=== PATIENT | male | born 1950 | race Two or more races ===

== ENCOUNTER 2018-03-06 14:10 | Outpatient (CLI) | payer OTHER ==
[~2018-03-06 14:10] MED LIST: ANUSOL-HC25 MG RC; ANUSOL-HC30 G2 RC; METFORMIN; NAPROXEN; NEURONTIN800 MG PO; OMEGA-31000 MG PO; PLAVIX75 MG PO
== END 2018-03-06 14:17 | disposition home or self-care (01) ==
LOC: RAD 501 14:10
DX: M25.511 Pain in right shoulder (principal); M25.552 Pain in left hip

== ENCOUNTER 2018-03-08 15:26 | Outpatient (CLI) | payer OTHER | END 2018-03-08 15:36 | disposition home or self-care (01) | LOC: LAB 15:26 | DX: N28.89 Other specified disorders of kidney and ureter (principal); Z51.81 Encounter for therapeutic drug level monitoring ==

== ENCOUNTER → 2018-03-18 11:14 | Outpatient (CLI) | payer OTHER | END | disposition home or self-care (01) | LOC: RAD 11:14 | DX: M17.11 Unilateral primary osteoarthritis, right knee (principal) ==

== ENCOUNTER 2018-03-22 11:52 | Outpatient (CLI) | payer OTHER | END 2018-03-22 15:00 | disposition home or self-care (01) | LOC: SONOGRAMA 11:52 | DX: M75.41 Impingement syndrome of right shoulder (principal) ==

== ENCOUNTER 2018-03-26 13:59 | Outpatient (CLI) | payer OTHER | END 2018-03-26 14:17 | disposition home or self-care (01) | LOC: NUCLEAR 13:59 | DX: M81.0 Age-related osteoporosis without current pathological fracture (principal) ==

== ENCOUNTER 2018-04-30 14:51 | Emergency (ER) | payer OTHER ==
[~2018-04-30] VITALS: Ht 175.3 cm; Wt 79.8 kg
[2018-04-30] MEDS ORDERED: LANTUS SOL100 UNIT/1 SUBCUTANEO (14:58)
[2018-04-30] MEDS ORDERED: FORTAMET1000 MG PO (14:58)
[2018-04-30] MEDS ORDERED: ZOCOR40 MG PO (14:59)
[2018-04-30] MEDS ORDERED: ASA81 MG PO (14:59)
== END 2018-04-30 17:45 | disposition home or self-care (01) ==
LOC: ER 14:51
DX: K29.60 Other gastritis without bleeding (principal)

== ENCOUNTER → 2018-06-17 08:49 | Outpatient (CLI) | payer OTHER ==
[~2018-06-17 08:49] MED LIST changes: +ASA81 MG PO; +FORTAMET1000 MG PO; +LANTUS SOL100 UNIT/1 SUBCUTANEO; +PENTOXIFYLLINE400 MG PO; +ZOCOR40 MG PO
== END | disposition home or self-care (01) ==
LOC: LAB 08:49
DX: D64.89 Other specified anemias (principal); E03.8 Other specified hypothyroidism; N39.0 Urinary tract infection, site not specified; R82.8 Abnormal findings on cytological and histological examination of urine; E11.9 Type 2 diabetes mellitus without complications; K92.1 Melena; E55.9 Vitamin D deficiency, unspecified; E78.49 Other hyperlipidemia; D68.8 Other specified coagulation defects; B95.62 Methicillin resistant Staphylococcus aureus infection as the cause of diseases classified elsewhere; E88.89 Other specified metabolic disorders; E83.42 Hypomagnesemia; Z76.89 Persons encountering health services in other specified circumstances

== ENCOUNTER 2018-06-21 10:09 | Outpatient (CLI) | payer OTHER ==
[~2018-06-21 10:09] MED LIST changes: -PENTOXIFYLLINE400 MG PO
[2018-06-21] MEDS ORDERED: PENTOXIFYLLINE400 MG PO (11:02)
== END 2018-06-21 10:15 | disposition home or self-care (01) ==
LOC: EKG 10:09
DX: I49.8 Other specified cardiac arrhythmias (principal); Z01.810 Encounter for preprocedural cardiovascular examination

== ENCOUNTER 2018-07-05 05:45 | Day surgery (SDC) | payer OTHER ==
[~2018-07-05 05:45] MED LIST changes: +ASPIR 8181 MG PO; +GABAPENTIN800 MG PO; +LANTUS; +PENTOXIFYLLINE400 MG PO; +TRAMADOL HCL7.5 GM PO
== END 2018-07-05 19:10 | disposition home or self-care (01) ==
LOC: CIR.AMB 05:45
DX: M75.121 Complete rotator cuff tear or rupture of right shoulder, not specified as traumatic (principal)

== ENCOUNTER → 2018-08-28 | Outpatient (CLI) | payer OTHER | END | disposition home or self-care (01) | LOC: RAD 501 10:30 | DX: M25.552 Pain in left hip (principal) ==

== ENCOUNTER 2021-02-11 15:15 | Emergency (ER) | payer OTHER ==
[~2021-02-11] VITALS: Ht 175.3 cm; Wt 72.6 kg
[2021-02-11] MEDS ORDERED: KETO10TA2 PO (21:09)
== END 2021-02-11 21:13 | disposition home or self-care (01) ==
LOC: ER 15:15
DX: S70.02XA Contusion of left hip, initial encounter (principal); W07.XXXA Fall from chair, initial encounter; Y93.89 Activity, other specified; Y92.018 Other place in single-family (private) house as the place of occurrence of the external cause; Y99.8 Other external cause status; Z96.642 Presence of left artificial hip joint

== ENCOUNTER 2021-11-03 14:22 | Outpatient (CLI) | payer OTHER ==
[~2021-11-03 14:22] MED LIST changes: +KETO10TA2 PO
== END 2021-11-03 14:23 | disposition home or self-care (01) ==
LOC: RAD 14:22
PROVIDERS: ATTEND Orthopaedic Surgery
DX: M25.561 Pain in right knee (principal); M25.552 Pain in left hip; M25.551 Pain in right hip

== ENCOUNTER 2021-12-16 12:54 | Outpatient (CLI) | payer OTHER ==
[~2021-12-16 12:54] MED LIST changes: +PREGABALIN50 MG PO
== END 2021-12-16 13:03 | disposition home or self-care (01) ==
LOC: MRI 12:54
PROVIDERS: ATTEND Orthopaedic Surgery Orthopaedic Surgery of the Spine
DX: M48.062 Spinal stenosis, lumbar region with neurogenic claudication (principal); Z98.1 Arthrodesis status
CPT/HCPCS: 72148

== ENCOUNTER → 2022-11-30 | Outpatient (CLI) | payer OTHER | END | disposition home or self-care (01) | LOC: LAB 15:22 | DX: R07.89 Other chest pain (principal); R13.10 Dysphagia, unspecified; R22.1 Localized swelling, mass and lump, neck ==

== ENCOUNTER 2023-01-05 07:06 | Outpatient (CLI) | payer OTHER | END 2023-01-05 07:10 | disposition home or self-care (01) | LOC: TOM 07:06 | PROVIDERS: ATTEND Otolaryngology | DX: R22.1 Localized swelling, mass and lump, neck (principal); R13.10 Dysphagia, unspecified; R07.0 Pain in throat ==